=== PATIENT | female | born 1945 | race Caucasian/White ===

== ENCOUNTER 2016-07-08 19:20 | Inpatient (IN) | payer MEDICARE, OTHER ==
[~2016-07-08] VITALS: Ht 165.1 cm; Wt 72.5 kg
[~2016-07-08 19:20] MED LIST: ALBUAER3 IN; ASPI81CH43 PO; ATOR20TA50 PO; CANA300T PO; CAR3125T PO; CEL100T PO; DONE10TA37 PO; ENA2.5T PO; FER325T PO; FLUT500M2 INH; FURO40TA4 PO; INSLANTI SC; MIRT30TA3 PO; OMEP20CA5 PO; OXYC10TA44 PO; POTA10TA34 PO; PREG200C19 PO
[2016-07-08] MEDS ORDERED: HYDROmorphone HCL 2 MG/ML VL IV ONE (20:15)
[2016-07-08] MEDS ORDERED: ONDANSETRON HCL 4 MG/2 ML VIAL IV ONE (20:15)
[2016-07-08 20:47] LABS: Basophils # (auto) 0 uL; Basophils % (auto) 0.5 % (0.0-2.0); DEFINITIVE VIEW TRANSMISSION; Eosinophils # (auto) 0 uL; Eosinophils % (auto) 1.1 % (0.0-7.0); Hematocrit 23.3 % (36.0-46.0); Hemoglobin 7.3 g/dL (12.2-16.2); Lymphocytes % (auto) 27.8 % (10.0-50.0); Mean Corpuscular Hemoglobin 22.7 pg (28.0-32.0); Mean Corpuscular Hgb Conc. 31.4 g/dL (32.0-36.0); Mean Corpuscular Volume 72.4 fL (80.0-100.0); Mean Platelet Volume 11.3 fL (7.4-10.4); Monocytes # (auto) 0.3 uL; Monocytes % (auto) 7.8 % (0.0-12.0); Neutrophils # (auto) 2.3 uL; Neutrophils % (auto) 62.8 % (37.0-80.0); Platelet Count (auto) 92 10^3/uL (140-450); Red Cell Distribution Width 17.3 % (11.6-16.0); SUSPECT VIEW TRANSMISSION; White Blood Cell 3.7 10^3/uL (4.4-10.8)
[2016-07-08 21:07] LABS: Albumin 2.8 g/dL (3.4-5.0); BUN/Creatinine Ratio 13.2; Calcium 8.2 mg/dL (8.5-10.1); Potassium 3.9 mmol/L (3.5-5.1); Total Protein 6.8 g/dL (6.4-8.2)
[2016-07-08 21:39] LABS: Urine Bilirubin Negative (Negative); Urine Blood Negative /uL (Negative); Urine Color Yellow (Yellow); Urine Ketone Negative (Negative); Urine Nitrite Negative (Negative); Urine RBC 2 /hpf (0 - 4); Urine Squamous Epithelial Cell FEW /hpf (<5)
[2016-07-08 21:40] LABS: Urine Glucose 4+ mg/dL (Normal)
[2016-07-08] MEDS ORDERED: OXYCODONE W/ ACETAMINOPHEN 5/325MG TABLET PO ONE (22:00)
[2016-07-08] MEDS ORDERED: cefTRIAXone 1GM/50ML D5W 50 ML IV ONE (23:45)
[2016-07-08] MEDS ORDERED: IOHEXOL 300 MG/ML 100ML BOTTLE IJ ONE (23:47)
[2016-07-09] VITALS (7 sets, daily range): BP systolic 96–137; BP diastolic 51–67
[2016-07-09] MEDS ORDERED: ACETAMINOPHEN 325 MG TAB PO PRN (01:30)
[2016-07-09] MEDS ORDERED: ALBUTEROL SULF 2.5 MG/0.5ML(0.5%) NEB SOLN NEB PRN (01:30)
[2016-07-09] MEDS ORDERED: ONDANSETRON HCL 4 MG/2 ML VIAL IV PRN (01:30)
[2016-07-09] MEDS ORDERED: MORPHINE SULF INJ 2 MG/ML SYRINGE 1ML IV PRN (01:30)
[2016-07-09] MEDS ORDERED: DEXTROSE (50%) 50ML SYRG IV PRN (01:45)
[2016-07-09 02:50] LABS: Basophils # (auto) 0 uL; Basophils % (auto) 0.5 % (0.0-2.0); DEFINITIVE VIEW TRANSMISSION; Eosinophils # (auto) 0 uL; Eosinophils % (auto) 1.1 % (0.0-7.0); Hematocrit 26.6 % (36.0-46.0); Hemoglobin 8.1 g/dL (12.2-16.2); Lymphocytes # (auto) 1.5 uL; Lymphocytes % (auto) 38.8 % (10.0-50.0); Mean Corpuscular Hemoglobin 22.3 pg (28.0-32.0); Mean Corpuscular Hgb Conc. 30.5 g/dL (32.0-36.0); Mean Corpuscular Volume 73.2 fL (80.0-100.0); Mean Platelet Volume 10.1 fL (7.4-10.4); Monocytes # (auto) 0.4 uL; Monocytes % (auto) 9.9 % (0.0-12.0); Neutrophils # (auto) 1.9 uL; Neutrophils % (auto) 49.7 % (37.0-80.0); Platelet Count (auto) 93 10^3/uL (140-450); Red Cell Distribution Width 17.4 % (11.6-16.0); SUSPECT VIEW TRANSMISSION; White Blood Cell 3.8 10^3/uL (4.4-10.8)
[2016-07-09 03:12] LABS: Calcium 7.9 mg/dL (8.5-10.1); Potassium 3.9 mmol/L (3.5-5.1)
[2016-07-09 03:14] LABS: BUN/Creatinine Ratio 11.9
[2016-07-09 03:17] LABS: Bilirubin, Total 0.8 mg/dL (0.2-1.0); Total Protein 7.5 g/dL (6.4-8.2)
[2016-07-09] MEDS: OXYCODONE W/ ACETAMINOPHEN 5/325MG TABLET PO PRN ×4 (03:48→21:50)
[2016-07-09] MEDS ORDERED: DONE5TAB11 PO (04:12)
[2016-07-09] MEDS ORDERED: [UNRECOGNIZED DRUG - CODE] XX (04:12)
[2016-07-09] MEDS ORDERED: FLUT50AE2 IN (04:12)
[2016-07-09] MEDS ORDERED: GABA250S2 PO (04:12)
[2016-07-09] MEDS ORDERED: METF-312 PO (04:12)
[2016-07-09] MEDS ORDERED: OMEP20CA5 PO (04:12)
[2016-07-09] MEDS ORDERED: FURO20TA PO (04:12)
[2016-07-09] MEDS ORDERED: CARV3.1213 OR (04:12)
[2016-07-09] MEDS ORDERED: ASPI81CH43 GT (04:12)
[2016-07-09] MEDS ORDERED: POTA-167 PO (04:12)
[2016-07-09] MEDS ORDERED: ACET-1156 PO (04:12)
[2016-07-09] MEDS ORDERED: PREG200C19 PO (04:12)
[2016-07-09] MEDS ORDERED: ENAL2.5T PO (04:12)
[2016-07-09] MEDS ORDERED: MIRT30TA PO (04:12)
[2016-07-09] MEDS ORDERED: ATOR10TA PO (04:12)
[2016-07-09] MEDS: ACCU-CHEK COMFORT CURVE STRIP VI SCH ×3 (05:55→17:37)
[2016-07-09] MEDS: InsuLIN REG 1unit/0.01ml Soln (100units/ml) SC SCH ×3 (06:11→17:37)
[2016-07-09] MEDS: FERROUS SULFATE 325 MG TAB PO SCH ×2 (08:13→17:09)
[2016-07-09] MEDS: cefTRIAXone 1GM/50ML D5W 50 ML IV SCH (09:09)
[2016-07-09] MEDS: ENOXAPARIN SOD 40 MG/0.4 ML SYRINGE SC SCH (09:28)
[2016-07-09] MEDS: POTASSIUM CHL 10 Meq TABLET PO SCH (09:29)
[2016-07-09] MEDS: FUROSEMIDE 40 MG TAB PO SCH (09:29)
[2016-07-09] MEDS: ASPirin 81 mg TAB PO SCH (09:29)
[2016-07-09] MEDS: FAMOTIDINE 20 MG TAB PO SCH ×2 (09:29→21:50)
[2016-07-09] MEDS: ENALAPRIL MALEATE 2.5 MG TAB PO SCH (10:00)
[2016-07-09] MEDS: CARVEDILOL 3.125 MG TAB PO SCH ×2 (10:00→21:53)
[2016-07-09] MEDS: MORPHINE SULF INJ 2 MG/ML SYRINGE 1ML IV PRN (11:40)
[2016-07-09] MEDS: AZITHROMYCIN 500MG/D5W 250ML 250 ML IV SCH (11:40)
[2016-07-09] MEDS ORDERED: DONEPEZIL HYDROCHLORIDE 5 MG TAB PO SCH (22:00)
[2016-07-09] MEDS ORDERED: ATORVASTATIN 20 MG TAB PO SCH (22:00)
[2016-07-09] MEDS ORDERED: TEMAZEPAM 15 MG CAP PO ONE (22:00)
[2016-07-10] MEDS: ACCU-CHEK COMFORT CURVE STRIP VI SCH ×3 (02:10→11:12)
[2016-07-10] MEDS: InsuLIN REG 1unit/0.01ml Soln (100units/ml) SC SCH ×3 (02:19→11:20)
[2016-07-10 05:30] VITALS: BP 95/47
[2016-07-10] MEDS: OXYCODONE W/ ACETAMINOPHEN 5/325MG TABLET PO PRN ×2 (06:30→11:25)
[2016-07-10 06:40] VITALS: BP_SYST 112; BP_DIAS 62; BP_DIAS 91
[2016-07-10 06:42] LABS: Basophils # (auto) 0 uL; Basophils % (auto) 0.5 % (0.0-2.0); DEFINITIVE VIEW TRANSMISSION; Eosinophils # (auto) 0 uL; Eosinophils % (auto) 0.9 % (0.0-7.0); Hematocrit 24.4 % (36.0-46.0); Hemoglobin 7.6 g/dL (12.2-16.2); Lymphocytes # (auto) 1.4 uL; Lymphocytes % (auto) 35.9 % (10.0-50.0); Mean Corpuscular Hemoglobin 22.6 pg (28.0-32.0); Mean Corpuscular Hgb Conc. 31.3 g/dL (32.0-36.0); Mean Corpuscular Volume 72.4 fL (80.0-100.0); Mean Platelet Volume 11.7 fL (7.4-10.4); Monocytes # (auto) 0.4 uL; Monocytes % (auto) 10.8 % (0.0-12.0); Neutrophils # (auto) 2.1 uL; Neutrophils % (auto) 51.9 % (37.0-80.0); Platelet Count (auto) 108 10^3/uL (140-450); Red Cell Distribution Width 17.4 % (11.6-16.0); SUSPECT VIEW TRANSMISSION
[2016-07-10 07:03] LABS: INR 1.23 (0.9-1.15); Prothrombin Time 12.7 sec (9.37-12.3)
[2016-07-10 07:05] LABS: BUN/Creatinine Ratio 12.5; Calcium 8.3 mg/dL (8.5-10.1); Magnesium 2.3 mg/dL (1.6-2.6); Potassium 3.9 mmol/L (3.5-5.1)
[2016-07-10 08:27] VITALS: BP 93/54
[2016-07-10] MEDS: POTASSIUM CHL 10 Meq TABLET PO SCH (08:39)
[2016-07-10] MEDS: ASPirin 81 mg TAB PO SCH (08:39)
[2016-07-10] MEDS: FAMOTIDINE 20 MG TAB PO SCH (08:40)
[2016-07-10] MEDS: ENOXAPARIN SOD 40 MG/0.4 ML SYRINGE SC SCH (08:40)
[2016-07-10] MEDS: ENALAPRIL MALEATE 2.5 MG TAB PO SCH (08:41)
[2016-07-10] MEDS: CARVEDILOL 3.125 MG TAB PO SCH (08:41)
[2016-07-10] MEDS: MORPHINE SULF INJ 2 MG/ML SYRINGE 1ML IV PRN (08:41)
[2016-07-10] MEDS: FUROSEMIDE 40 MG TAB PO SCH (08:41)
[2016-07-10] MEDS: FERROUS SULFATE 325 MG TAB PO SCH (08:42)
[2016-07-10] MEDS: cefTRIAXone 1GM/50ML D5W 50 ML IV SCH (09:16)
[2016-07-10] MEDS: AZITHROMYCIN 500MG/D5W 250ML 250 ML IV SCH (09:49)
[2016-07-10 11:48] VITALS: BP 100/59
[2016-07-10 16:55] VITALS: BP 96/68
== END 2016-07-10 16:55 | disposition home health service (06) | DRG 871 ==
LOC: EDBD 19:20 → ER 19:26 → OVERFLOW 19:27 → WEST WING 07-09 02:53 → TELE-WESTW 07-09 12:08
PROVIDERS: ADMIT Internal Medicine; ATTEND Internal Medicine
DX: A41.9 Sepsis, unspecified organism (principal); E43 Unspecified severe protein-calorie malnutrition; N39.0 Urinary tract infection, site not specified; D61.818 Other pancytopenia; M54.5 Low back pain; D50.9 Iron deficiency anemia, unspecified; E11.22 Type 2 diabetes mellitus with diabetic chronic kidney disease; E11.65 Type 2 diabetes mellitus with hyperglycemia; F02.80 Dementia in other diseases classified elsewhere, unspecified severity, without behavioral disturbance, psychotic disturbance, mood disturbance, and anxiety; G30.9 Alzheimer's disease, unspecified; G89.29 Other chronic pain; I25.10 Atherosclerotic heart disease of native coronary artery without angina pectoris; I50.9 Heart failure, unspecified; J44.9 Chronic obstructive pulmonary disease, unspecified; K21.9 Gastro-esophageal reflux disease without esophagitis; K44.9 Diaphragmatic hernia without obstruction or gangrene; K57.30 Diverticulosis of large intestine without perforation or abscess without bleeding; K70.30 Alcoholic cirrhosis of liver without ascites; N18.9 Chronic kidney disease, unspecified; Z80.0 Family history of malignant neoplasm of digestive organs; Z87.891 Personal history of nicotine dependence; Z90.710 Acquired absence of both cervix and uterus; B19.20 Unspecified viral hepatitis C without hepatic coma; Z79.899 Other long term (current) drug therapy; Z79.4 Long term (current) use of insulin; Z79.82 Long term (current) use of aspirin; Z90.49 Acquired absence of other specified parts of digestive tract
CPT/HCPCS: 36415; 71010; 74177; 80048; 80053; 80061; 81001; 82962; 83036; 83735; 84484; 85025; 85610; 86850; 86900; 86901; 87040; 87081; 87086; 93005; 93306; 94761; 96374; 96375; J0696; J1815; J2405

== ENCOUNTER 2016-07-24 14:41 | Emergency (ER) | payer MEDICARE, OTHER ==
[~2016-07-24] VITALS: Ht 162.6 cm; Wt 81.6 kg
[~2016-07-24 14:41] MED LIST changes: +ACET-1156 PO
[2016-07-24] MEDS ORDERED: SUCCINYLCHOLINE CHLORIDE 20 MG/ML 10ML VIAL IV ONE ×2 (17:27→18:00)
[2016-07-24] MEDS ORDERED: ETOMIDATE (2MG/ML) 20ML VIAL IV ONE ×2 (17:27→18:00)
[2016-07-24] MEDS ORDERED: MIDAZOLAM DRIP 100 mg/100mL NS 100 ML IV ONE (17:27)
[2016-07-24 17:32] LABS: Partial Thromboplastin Time 45.1 sec (22.64-33.71)
[2016-07-24 17:33] LABS: INR 1.5 (0.9-1.15); Prothrombin Time 15.5 sec (9.37-12.3)
[2016-07-24 17:39] LABS: Albumin 2.9 g/dL (3.4-5.0); BUN/Creatinine Ratio 10.9; Bilirubin, Total 0.8 mg/dL (0.2-1.0); Calcium 8.7 mg/dL (8.5-10.1); Potassium 3.2 mmol/L (3.5-5.1)
[2016-07-24 17:50] LABS: Basophils # (auto) 0 uL; Basophils % (auto) 0.5 % (0.0-2.0); DEFINITIVE VIEW TRANSMISSION; Eosinophils # (auto) 0 uL; Eosinophils % (auto) 0.5 % (0.0-7.0); Hematocrit 25.6 % (36.0-46.0); Hemoglobin 7.9 g/dL (12.2-16.2); Lymphocytes # (auto) 1.2 uL; Lymphocytes % (auto) 39.6 % (10.0-50.0); Mean Corpuscular Hemoglobin 22.5 pg (28.0-32.0); Mean Corpuscular Hgb Conc. 30.8 g/dL (32.0-36.0); Mean Corpuscular Volume 73.2 fL (80.0-100.0); Mean Platelet Volume 9.6 fL (7.4-10.4); Monocytes # (auto) 0.3 uL; Neutrophils # (auto) 1.5 uL; Neutrophils % (auto) 50.4 % (37.0-80.0); Platelet Count (auto) 200 10^3/uL (140-450); Red Cell Distribution Width 18.6 % (11.6-16.0); White Blood Cell 3.1 10^3/uL (4.4-10.8)
[2016-07-24] MEDS ORDERED: MIDAZOLAM DRIP 100 mg/100mL NS 100 ML IV SCH (18:00)
[2016-07-24 18:18] LABS: Hypochromia Moderate; Platelet Estimate Adequate
[2016-07-24 18:19] LABS: Ovalocytes FEW
[2016-07-24 18:50] VITALS: BP 120/74
[2016-07-24 18:57] VITALS: BP 119/71
== END 2016-07-24 19:27 | disposition short-term general hospital (02) ==
LOC: EDUNIT# 14:41 → ER 14:48
DX: I62.00 Nontraumatic subdural hemorrhage, unspecified (principal); G93.89 Other specified disorders of brain; I25.2 Old myocardial infarction; K21.9 Gastro-esophageal reflux disease without esophagitis; I50.9 Heart failure, unspecified; Z90.49 Acquired absence of other specified parts of digestive tract; Z90.89 Acquired absence of other organs; Z86.19 Personal history of other infectious and parasitic diseases; Z87.891 Personal history of nicotine dependence
CPT/HCPCS: 31500; 36415; 36600; 51702; 70450; 71010; 80053; 82805; 82962; 83735; 84484; 85025; 85049; 85610; 85730; 93005; 99291; J0330